=== PATIENT | female | born 1960 | race Caucasian/White ===

== ENCOUNTER 2025-04-22 06:56 | Day surgery (SDC) | payer OTHER ==
[~2025-04-22] VITALS: Ht 157.5 cm; Wt 96.8 kg
[~2025-04-22 06:56] MED LIST: SODIUM CHLORIDE 0.9% 1,000 ML ONE
[2025-04-22] MEDS: SODIUM CHLORIDE 0.9% 1,000 ML IV ONE (08:17)
[2025-04-22] MEDS ORDERED: MIDAZOLAM HCL 2 MG/2 ML VIAL ONE (08:59)
[2025-04-22] MEDS ORDERED: FentaNYL CITRATE PF 100 MCG/2 ML VIAL ONE (08:59)
[2025-04-22 09:35] VITALS: PULSE 79; RESP 18; O2SAT 98
[2025-04-22] MEDS ORDERED: BENZOCAINE 20% 50 MCG/SPRAY 57 GM ONE (15:43)
[2025-04-22] MEDS ORDERED: LIDOCAINE 2% 11 ML JELLY ONE (15:43)
[2025-04-22] MEDS ORDERED: ALBUTEROL SULFATE 2.5 MG/0.5 ML NEB SOLUTION NEB ONE (15:43)
[2025-04-22] MEDS ORDERED: LIDOCAINE 4% 50 ML SOLUTION ONE (15:43)
== END 2025-04-22 13:20 | disposition home or self-care (01) ==
LOC: SDS 06:56
PROVIDERS: ATTEND Internal Medicine Critical Care Medicine
DX: R05.3 Chronic cough (principal); J38.4 Edema of larynx; B37.0 Candidal stomatitis; Z98.890 Other specified postprocedural states; I10 Essential (primary) hypertension; Z79.899 Other long term (current) drug therapy
CPT/HCPCS: 31623; 31624; 87206; 87101; 87220; 87070; 88108; 71045; 87015; J3010; J2250; J2919; J7030; J7613; Z7610